=== PATIENT | female | born 1950 | race Caucasian/White ===

== ENCOUNTER → 2016-09-09 | Outpatient (CLI) | payer MEDICAID ==
--- NOTE | 2016-09-09 15:04 | DX ---
DEXA Bone Mineral Densitometry Clinical Indications: Postmenopausal, family history of osteoporosis, history of right hip fracture, ankle fracture x2, follow-up osteoporosis Comparison: July 04, 2014 Technique: Bone Mineral Densitometry (BMD) by Dual Energy X-Ray Absorptiometry (DEXA) was performed utilizing the [employer] scanner. The lumbar spine was evaluated in the AP projection. The left hip and forearm were evaluated in the AP projection. Vertebral fracture assessment was also performe d. AP Lumbar Spine: The L1, L2, L3 and L4 vertebral bodies were evaluated. BMD: 0.969 gm/cm2 T-score: -1.8 SD Z-score: -0.1 SD No significant change. AP Left Hip: Neck BMD: 0.792 gm/cm2 T-score: -1.8 SD Z-score: -0.2 SD No significant change in total BMD AP Left Forearm, 08/09: BMD: 0.638 gm/cm2 T-score: -2.7 SD Z-score: -1.4 SD No significant change. Vertebral Fracture Assessment: No significant fracture deformity. No prevertebral aortic calcificati on, significant marginal bone spurring, facet arthrosis, or intrinsic vertebral body sclerosis that would effect the accuracy of the lumbar spine BMD measurement. Conclusion: Considering the lowest measured site, the patient remains osteoporotic in the forearm an d is at increased risk for fracture. Since the forearm is the lowest measured site, it would be worth while to exclude hyperparathyroidism. The ten year FRAX risk for any major osteoporotic fracture , which excludes the risk for a wrist frac ture, is 14.9% and for a hip fracture is 2.0%. To prevent osteoporosis and to promote the patient's bone density, the following recommendations shou ld be considered: 1. Pursue a regular regimen of weightbearing and muscle strengthening exercises in order to reduce t he risk of falls and fractures (as tolerated by the patient's general medical condition). 2. Ensure that daily dietary calcium uptake is maximized. 3. Consider checking the serum vitamin D level. Ensure that intake of vitamin D is 600 IU per day (fo r all ages through 70) . 4. Consider follow-up DEXA scan in 3-4 years to assess the rate of bone loss in this patient.
--- NOTE | 2016-09-09 17:16 | MR ---
MRI Lower Extremity, Right Hip History: Right hip pain. ICD 10 code M16.11. Comparisons: December 2015. Technique: MRI was performed of the pelvis and right hip using a 3 [employer] MRI system. Large field-of-v iew coronal and axial imaging was obtained with standard imaging sequences. High-resolution small fie ld-of-view imaging was obtained of the hip with oblique axial, oblique coronal, and sagittal images w ith standard imaging sequences. Findings: Signal abnormality is seen in the right femoral head compatible with avascular necrosis inv olving a large portion of the medial aspect of the femoral head. There is increased involvement in th e superior anterior aspect of the femoral head over the interval. There appears to be cortical disrup tion of the medial femoral head as seen previously. There is reactive bone marrow edema in the femora l head extending to the femoral neck. Cartilage thinning is seen superiorly where there is a full-thi ckness cartilage loss which has progressed over the interval. Nondisplaced labral tear is seen in the anterior and superior labrum. There is joint effusion with synovial proliferation and/or loos e bodies. Periarticular spurring is seen in the femoral head and acetabulum. Moderate degenerative change is seen in the left hip on the large [id number] images of the pelvis similar in appearance to the prior exam. Mild edema is seen in the gluteus tendon insertion at greate r trochanter bilaterally without attenuation. Minimal abnormal signal intensity is seen in the common hamstring tendon origin bilaterally without edema or attenuation. No evidence for sacroiliitis. Dege nerative disk and degenerative joint disease is seen in the lower lumbar spine. Impression: 1. 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 Progressive severe degenerativ e change in the right hip and labral pathology. Joint effusion which is increased with synovial proliferation and/or loose bodies. 2. Moderate degenerative change in the left hip stable in appearance. 3. Other chronic findings as above.
== END ==
LOC: FIMAGING 14:07
PROVIDERS: ATTEND Internal Medicine
DX: M81.0 Age-related osteoporosis without current pathological fracture (principal); M87.851 Other osteonecrosis, right femur; M25.851 Other specified joint disorders, right hip; M51.36 Other intervertebral disc degeneration, lumbar region

== ENCOUNTER → 2016-11-21 | Outpatient (CLI) | payer MEDICAID | LOC: FIMAGING 11:56 | PROVIDERS: ATTEND Orthopaedic Surgery | DX: Z01.818 Encounter for other preprocedural examination (principal); M87.851 Other osteonecrosis, right femur ==

== ENCOUNTER 2016-12-05 05:46 | Inpatient (IN) | payer MEDICAID ==
[2016-12-05] MEDS ORDERED: FAMOTIDINE 20 MG TAB PO ONE (07:00)
[2016-12-05] MEDS ORDERED: CHLORHEXIDINE GLUC HIBICLENS 118 ML BTL TP ONE (07:00)
[2016-12-05] MEDS ORDERED: ROPI/epiNEPH/KETOROLAC/morphINE JOINT COCKTAIL IU ONE (07:00)
[2016-12-05] MEDS ORDERED: TRANEXAMIC ACID 600 MG in NS 100 ML IV ONE (07:00)
[2016-12-05] MEDS ORDERED: PHARMACY PAIN CONSULT 1 EA MISC PRN (07:07)
[2016-12-05] MEDS ORDERED: BISACODYL 10 MG SUPP PR PRN (07:07)
[2016-12-05] MEDS ORDERED: MAGNESIUM HYDROXIDE 30 ML UDCUP PO PRN (07:07)
[2016-12-05] MEDS ORDERED: POLYETHYLENE GLYCOL 3350 17 GM PKT PO PRN (07:07)
[2016-12-05] MEDS ORDERED: ONDANSETRON DISINTEGRATING 4 MG TAB PO PRN (07:07)
[2016-12-05] MEDS ORDERED: METOCLOPRAMIDE 10 MG/2 ML VIAL IVP PRN (07:07)
[2016-12-05] MEDS ORDERED: LACTULOSE 20 GM/30 ML UDCUP PO PRN (07:07)
[2016-12-05] MEDS ORDERED: TEMAZEPAM 15 MG CAP PO PRN (07:07)
[2016-12-05] MEDS ORDERED: diphenhydrAMINE 25 MG CAP PO PRN (07:07)
[2016-12-05] MEDS ORDERED: PROMETHAZINE HCL 25 MG SUPPR PR PRN (07:07)
[2016-12-05] MEDS ORDERED: ONDANSETRON 4 MG/2 ML VIAL IVP PRN (07:07)
[2016-12-05] MEDS ORDERED: DIPHENOXYLATE/ATROPINE LOMOTIL 1 TAB PO PRN (07:07)
[2016-12-05] MEDS ORDERED: LORazepam 1 MG TAB PO PRN (07:10)
--- NOTE | 2016-12-05 07:12 | PDIAF ---
- Diagnosis Diagnosis: right hip djd Code Status: Full Code - Medication Management Discharge Medications: Medications to Continue on Transfer ASPIRIN DAILY 11/22/16 [Last Taken Unknown] Albuterol PRN 11/22/16 [Last Taken Unknown] VITAMIN D DAILY 11/22/16 [Last Taken Unknown] Discharge Medications: Refer to the Discharge Home Medication list for PRN reason. - Orders Services needed: Physical Therapy Diet Recommendation: no restrictions on diet Diet Texture: Regular Texture Diet Activity/Weight Bearing Restrictions: wbat. rom as tolerated. anterior hip precautions. daily dressing changes. may shower without bandage, no soaking or immersion. f/u at two weeks. seek attn for increasing pain, drainage, s/s infection, leg pain - Follow Up Care Current Providers and Referrals: Kalli Nino MD [Primary Care Provider] -
[2016-12-05] MEDS ORDERED: FAMOTIDINE 20 MG TAB ONE (07:24)
[2016-12-05] MEDS ORDERED: DEXAMETHASONE 4 MG/ML VIAL ONE (07:24)
[2016-12-05] MEDS ORDERED: ACETAMINOPHEN 325 MG TAB ONE (07:25)
[2016-12-05] MEDS ORDERED: CEFAZOLIN 2 GM/DEXTROSE/100 ML BAG IV ONE (07:25)
[2016-12-05] MEDS ORDERED: LIDOCAINE 1% 5 ML SDV ONE (07:26)
[2016-12-05] MEDS ORDERED: ceFAZolin 1 GM/5 ML SYR ONE (07:26)
[2016-12-05] MEDS ORDERED: LR 1,000 ML IV SCH (07:30)
[2016-12-05] MEDS ORDERED: ACETAMINOPHEN 500 MG TAB ONE (07:33)
[2016-12-05] MEDS ORDERED: LIDOCAINE 1% 5 ML SDV ID PRN (07:37)
[2016-12-05] MEDS ORDERED: LR 1,000 ML IV ONE (07:37)
[2016-12-05] MEDS ORDERED: TRANEXAMIC ACID 1,200 MG in NS 100 ML IV ONE (08:00)
[2016-12-05] MEDS ORDERED: MIDAZOLAM 2 MG/2 ML VIAL ONE (09:21)
[2016-12-05] MEDS ORDERED: PROPOFOL/EMULSION 500 MG/50 ML BOTTLE IV ONE (09:22)
[2016-12-05] MEDS ORDERED: LIDOCAINE 2% 5 ML SDV ONE (09:34)
[2016-12-05] MEDS ORDERED: fentaNYL 100 MCG/2 ML INJ ONE (09:51)
[2016-12-05] MEDS ORDERED: epHEDrine SULFATE 10 MG/ML SYR ONE (10:18)
[2016-12-05] MEDS: SENNOSIDES/DOCUSATE SODIUM TAB PO SCH ×2 (11:06→21:11)
[2016-12-05] MEDS: ACETAMINOPHEN 325 MG TAB PO SCH ×3 (14:01→23:24)
[2016-12-05] MEDS: traMADol 50 MG TAB PO PRN ×2 (14:02→21:14)
[2016-12-05] MEDS: VANCOMYCIN HCL/NORMAL SALINE 250 ML IV SCH (14:21)
[2016-12-05] MEDS: CYCLOBENZAPRINE 10 MG TAB PO PRN (14:32)
[2016-12-05] MEDS ORDERED: HYDROCODONE/APAP 5/325 TAB PO PRN (15:09)
[2016-12-05] MEDS ORDERED: oxyCODONE IR 5 MG TAB PO PRN (15:12)
[2016-12-05] MEDS: FAMOTIDINE 20 MG TAB PO SCH (21:10)
[2016-12-05] MEDS: ASPIRIN 325 MG TAB PO SCH (21:10)
[2016-12-06] MEDS: VANCOMYCIN HCL/NORMAL SALINE 250 ML IV SCH (01:08)
[2016-12-06 04:07] VITALS: TEMP 97.7; O2SAT 96
[2016-12-06] MEDS: traMADol 50 MG TAB PO PRN (04:32)
[2016-12-06] MEDS: CYCLOBENZAPRINE 10 MG TAB PO PRN (04:33)
[2016-12-06] MEDS: ACETAMINOPHEN 325 MG TAB PO SCH (05:23)
[2016-12-06 05:28] LABS: HEMATOCRIT 33.6 % (38.0-47.0); HEMOGLOBIN 11.5 g/dL (12.6-16.3)
--- NOTE | 2016-12-06 06:49 | PDIAF ---
- Diagnosis Diagnosis: right hip djd Code Status: Full Code - Medication Management Discharge Medications: Medications to Continue on Transfer Albuterol [Proventil Inhaler HFA (*)] 1 - 2 puffs IH Q4H PRN 12/05/16 [Last Taken 12/05/16] Aspirin [Aspirin 81mg (*)] 81 mg PO DAILY 12/05/16 [Last Taken 11/28/16] Cholecalciferol Vit D3 [Vitamin D3 (*)] 2,000 units PO Q2D 12/05/16 [Last Taken 11/28/16] Herbals/Supplements -Info Only 1 ea PO DAILY 12/05/16 [Last Taken 12/03/16] Aspirin [Aspirin 325 mg (*)] 325 mg PO DAILY #0 tab 12/06/16 [Last Taken Unknown ] Cyclobenzaprine [Flexeril 10 MG (*)] 10 mg PO Q8HRS PRN #30 tab 12/06/16 [Last Taken Unknown] Hydrocodone/APAP 5/325 [[place] 5/325 (*)] 1 - 2 tab PO Q6 PRN #60 tab 12/06/16 [ Last Taken Unknown] LORazepam [Ativan (*)] 1 mg PO Q4HRS PRN #30 tab 12/06/16 [Last Taken Unknown] traMADol [Ultram 50 mg (*)] 50 mg PO Q6HRS PRN #90 tab 12/06/16 [Last Taken Unknown] Discharge Medications: Refer to the Discharge Home Medication list for PRN reason. - Orders Services needed: Physical Therapy Diet Recommendation: no restrictions on diet Diet Texture: Regular Texture Diet Activity/Weight Bearing Restrictions: wbat. rom as tolerated. anterior hip precautions. daily dressing changes. may shower without bandage, no soaking or immersion. f/u at two weeks. seek attn for increasing pain, drainage, s/s infection, leg pain - Follow Up Care Current Providers and Referrals: Kalli Nino MD [Primary Care Provider] -
[2016-12-06 07:19] VITALS: BP 104/69; PULSE 61; RESP 14
[2016-12-06] MEDS: FAMOTIDINE 20 MG TAB PO SCH (08:14)
[2016-12-06] MEDS: ASPIRIN 325 MG TAB PO SCH (08:14)
[2016-12-06] MEDS: SENNOSIDES/DOCUSATE SODIUM TAB PO SCH (08:14)
--- NOTE | 2016-12-06 10:25 | GDS ---
[f rep st] DISCHARGE SUMMARY ADMISSION DIAGNOSIS: Right hip degenerative joint disease. DISCHARGE DIAGNOSIS: Right hip degenerative joint disease. PROCEDURE: Right total hip arthroplasty. HISTORY OF PRESENT ILLNESS: The patient is a 66-year-old woman who has end-stage arthritis to her r ight hip. She has interference with her activities of daily living. Clinical features and are cons istent with hip arthritis. As she has failed conservative measures, I have recommended operative in tervention. She understood the risks, benefits, alternatives, and wished to proceed. Written conse nt was signed and placed in the patient's chart. HOSPITAL COURSE: The patient was admitted overnight after an uncomplicated total hip arthroplasty. She tolerated the procedure well. Overnight, she had no additional complications. At the time of discharge, she is tolerating an oral diet. Her pain is well controlled on oral medicines. She is v oiding without difficulty. Dressings are clean, dry, and intact. She has intact sensation througho ut both lower extremities. Intact plantar flexion, dorsiflexion, EHL function. No calf pain. Nega tive Homans bilaterally. X-rays are stable without fracture or lucency. The hip was concentrically reduced. DISCHARGE ACTIVITY: Anterior hip precautions. Daily dressing changes. No soaking or immersion. M ay shower without the bandage. CRISTOFER hose on and off for 2 weeks. Aspirin 325 mg for 6 weeks. Seek a ttention for increasing redness, swelling, drainage, discharge. /[id number]/MODL
== END 2016-12-06 11:25 | disposition home health service (06) | DRG 470 ==
LOC: F3N 05:46
PROVIDERS: ADMIT Orthopaedic Surgery; ATTEND Orthopaedic Surgery
PROC: 0SR904Z Replacement of Right Hip Joint with Ceramic on Polyethylene Synthetic Substitute, Open Approach (ICD-10-PCS; principal; 2016-12-05 09:00)
PROC: 8E0Y0CZ Robotic Assisted Procedure of Lower Extremity, Open Approach (ICD-10-PCS; principal; 2016-12-05 09:00)
DX: M16.11 Unilateral primary osteoarthritis, right hip (principal)
CPT/HCPCS: 97110-GP; 97116-GP; 97161-GP; 97165-GO; C1713; J0171; J0690; J1100; J1885; J2250; J2704; J2795; J3010; J3370

== ENCOUNTER → 2017-01-13 | Outpatient (CLI) | payer OTHER, MEDICAID | LOC: BMCIMAGING 13:32 | PROVIDERS: ATTEND Physician Assistant | DX: Z47.1 Aftercare following joint replacement surgery (principal); Z96.641 Presence of right artificial hip joint ==

== ENCOUNTER → 2017-02-24 | Outpatient (CLI) | payer OTHER, MEDICAID | LOC: BMCIMAGING 12:55 | PROVIDERS: ATTEND Physician Assistant | DX: Z47.1 Aftercare following joint replacement surgery (principal); Z96.641 Presence of right artificial hip joint ==

== ENCOUNTER → 2017-06-23 | Outpatient (CLI) | payer OTHER, MEDICAID | LOC: BMCIMAGING 13:08 | PROVIDERS: ATTEND Internal Medicine | DX: Z12.31 Encounter for screening mammogram for malignant neoplasm of breast (principal); Z47.1 Aftercare following joint replacement surgery; Z96.641 Presence of right artificial hip joint | CPT/HCPCS: G0202 ==

== ENCOUNTER → 2017-08-28 | Outpatient (CLI) | payer OTHER, MEDICAID | LOC: FIMAGING 12:42 | PROVIDERS: ATTEND Internal Medicine | DX: J98.09 Other diseases of bronchus, not elsewhere classified (principal); R91.1 Solitary pulmonary nodule; I25.10 Atherosclerotic heart disease of native coronary artery without angina pectoris; I77.810 Thoracic aortic ectasia; Z87.891 Personal history of nicotine dependence ==